=== PATIENT | female | born 1960 | race Caucasian/White ===

== ENCOUNTER 2020-05-25 11:06 | Emergency (ER) | payer BC ==
--- NOTE | 2020-05-25 11:22 | ERPHSYRPT ---
- History of Present Illness Time Seen by Provider: 05/25/20 11:21 Source: patient Exam Limitations: no limitations Physician History: This is a 59-year-old white female who was being treated for urinary tract infection. First with sulfa medication then Cipro antibiotic. The Cipro was started approximately 5 days ago. Patient began noticing left upper extremity tenderness approximately 1 week ago. A couple days ago she noticed bruising in the mid humeral region. There is tenderness in the bicep region with flexion and extension. Patient denies chest pain she denies shortness of breath. She has no flulike symptoms. Patient denies trauma to the area. Occurred: other (1 week ago) Method of Injury: other (No injury) Quality: aching Severity of Pain-Max: moderate Severity of Pain-Current: moderate Extremities Pain Location: arm: left (Mid humerus to distal humerus) Modifying Factors: Improves With: movement (Hurts in this area with flexion and extension of the left elbow) Associated Symptoms: none Allergies/Adverse Reactions: clindamycin Allergy (Verified 05/25/20 11:22) Home Medications: Ciprofloxacin HCl [Cipro] 500 mg PO DAILY 05/25/20 [History] Levothyroxine Sodium [Synthroid] 112 mcg PO DAILY 05/25/20 [History] Travel Risk - International Travel Have you traveled outside of the country in past 3 weeks: No - Coronavirus Screening Are you exhibiting any of the following symptoms?: No Close contact with a COVID-19 positive Pt in past 14-21 Days: No - Review of Systems Constitutional: No Symptoms Eyes: No Symptoms Ears, Nose, & Throat: No Symptoms Respiratory: No Symptoms Cardiac: No Symptoms Abdominal/Gastrointestinal: No Symptoms Genitourinary Symptoms: No Symptoms Musculoskeletal: Other (Pain in left humerus mid to distal portion), No Fall, No Injury Skin: No Symptoms Neurological: No Symptoms Psychological: No Symptoms Endocrine: No Symptoms Hematologic/Lymphatic: No Symptoms Immunological/Allergic: No Symptoms All Other Systems: Reviewed and Negative - Past Medical History Pertinent Past Medical History: No Neurological History: No Pertinent History ENT History: No Pertinent History Cardiac History: No Pertinent History Respiratory History: No Pertinent History Endocrine Medical History: No Pertinent History Musculoskeletal History: No Pertinent History GI Medical History: No Pertinent History History: No Pertinent History Psycho-Social History: No Pertinent History Female Reproductive Disorders: No Pertinent History - Past Surgical History Neuro Surgical History: No Pertinent History Respiratory: No Pertinent History Genitourinary: No Pertinent History Musculoskeletal: No Pertinent History Female Surgical History: No Pertinent History - Nursing Vital Signs Nursing Vital Signs: Initial Vital Signs Temperature 98 F 05/25/20 11:13 Pulse Rate 98 H 05/25/20 11:13 Respiratory Rate 17 05/25/20 11:13 Blood Pressure 165/94 05/25/20 11:13 O2 Sat by Pulse Oximetry 97 05/25/20 11:13 Pain Scale Pain Intensity 8 - Physical Exam General Appearance: no apparent distress, alert, anxiety Eyes, Ears, Nose, Throat Exam: normal ENT inspection, moist mucous membranes Neck Exam: normal inspection, non-tender, supple, full range of motion Cardiovascular/Respiratory Exam: chest non-tender, no respiratory distress Back Exam: normal inspection, normal range of motion, No CVA tenderness, No vertebral tenderness Shoulder Exam: normal inspection, non-tender, no evidence of injury, normal ROM Elbow/Forearm Exam: normal inspection, no evidence of injury, normal ROM, soft tissue tenderness (Mid to distal humerus in the region of the biceps muscle) Wrist Exam: normal inspection, non-tender, no evidence of injury, normal ROM Hand Exam: normal inspection, non-tender, no evidence of injury, normal ROM Neuro/Tendon Exam: normal sensation, normal motor functions, normal tendon functions Mental Status Exam: alert, oriented x 3, cooperative Skin Exam: normal color, warm, dry SpO2 Interpretation: normal O2 Delivery: Room Air - Course Nursing assessment & vital signs reviewed: Yes Ordered Tests: Active Orders 24 hr Category Date Time Status Cold Application STAT Care 05/25/20 11:22 Active UPPER EXTREMITY W/O CONTRAST [CT] Stat Exams 05/25/20 11:31 Completed D-DIMER QUANTITATIVE Stat Lab 05/25/20 11:37 Completed Lab/Rad Data: Laboratory Results 05/25/20 Range/Units 11:37 D-Dimer < 182 L (215-500) ng/mL - Progress Progress: pain not gone completely Progress Note: 05/25/20 12:36 CAT scan of the left humerus reveals no acute bony or muscular abnormality. There are some chronic changes noted. Counseled pt/family regarding: lab results, rad results - Departure Departure Disposition: Home Clinical Impression: Left upper limb pain, Coming in Condition: Stable Critical Care Time: No Referrals: PRABHJOT PRUITT [NON-STAFF PHY W/O PRIVILEGES] - Additional Instructions: Take medication as prescribed. Follow-up with your primary care provider for further management. Prescriptions: Carisoprodol 350 mg [Soma 350 mg] 350 mg PO Q8H PRN PRN #10 tablet PRN Reason: Muscle Spasms Prednisone 10 mg [Deltasone 10 mg] 10 mg PO TID #12 tablet
--- NOTE | 2020-05-25 12:27 | XRAY ---
Indication: Pain. No known injury. Multiple contiguous axial images obtained through the left humerus to include the shoulder and elbow joint. Two-dimensional sagittal and coronal reformatted images obtained. Comparison: None Humeral head demonstrates two 3 mm subcortical sclerotic lesions probably bone islands. Minimal acromioclavicular degenerative arthropathy. Calcifications seen of the distal supraspinatus tendon near its insertion most likely sequela from old injury/inflammation. No acute fracture, suspicious bony lesions, or osseous destructive process. Shoulder and elbow articulation appears anatomic. Visualized noncontrasted soft tissues including axilla and left lung unremarkable. Incidental splenic calcified granulomas. Impression: 1. Tiny humeral head bone islands, mild AC degenerative arthropathy, supraspinous tendon calcifications from old injury/inflammation, and splenic calcified granulomas. 2. Remaining CT left humerus without contrast exam is negative.
[2020-05-25 12:45] VITALS: BP 134/80; PULSE 80; O2SAT 100
== END 2020-05-25 12:53 | disposition home or self-care (01) ==
LOC: ED 11:06
DX: M79.602 Pain in left arm (principal)
CPT/HCPCS: 36415; 73200; 85379; 99284

== ENCOUNTER 2022-02-10 12:46 | Emergency (ER) | payer BC ==
[2022-02-10] MEDS ORDERED: Sodium Chloride 0.9% 1000 ML 1,000 ML IV STA ×2 (13:27→14:38)
[2022-02-10] MEDS ORDERED: Sodium Chloride 0.9% 1000 ML 1,000 ML ONE ×2 (13:31→14:39)
[2022-02-10 13:45] LABS: Absolute Neutrophil Ct (ANC) 6.25 (1.4-6.9); Basophil (Absolute #) 0.01 (0-0.4); Eosinophil % 0.2 % (0.00-5.0); Eosinophil (Absolute #) 0.02 (0-0.5); Hematocrit 43.5 % (35-47); Hemoglobin 14.6 gm/dl (12.0-16.0); Lymphocyte (Absolute #) 1.36 (1.0-4.6); Lymphocytes % 16.5 % (24.0-44.0); Mean Cell Volume 90.8 fl (78-100); Mean Corpuscular Hemoglobin 30.5 pg (26-32); Mean Corpuscular Hgb Concent. 33.6 g/dl (32-36); Mean Platelet Volume 11.2 fl (7.5-11.0); Monocytes % 7.3 % (0.0-12.0); Neutrophil % 75.9 % (36.0-66.0); Platelet Count 223 K/mm3 (150-450); Red Blood Count 4.79 M/mm3 (4.1-5.4); Red Cell Distribution Width 12.8 % (11.5-14.0); White Blood Count 8.2 K/mm3 (4.0-10.5)
[2022-02-10 13:56] LABS: ALBUMIN 4.5 g/dL (3.5-5.0); ALKALINE PHOSPHATASE 81 U/L (38-126); ANION GAP 14.9 MEQ/L (5-15); BLOOD UREA NITROGEN 16 mg/dL (7-17); CHLORIDE 106 mmol/L (98-107); Calcium 9.7 mg/dL (8.4-10.2); Carbon Dioxide 21 mmol/L (22-30); Creatinine 1 0.59 mg/dL (0.52-1.04); EST GLOMERULAR FILTRATION RATE > 60.0 ML/MIN; Glucose 109 mg/dL (74-106); MAGNESIUM 2.3 mg/dL (1.6-2.3); Potassium 3.9 mmol/L (3.5-5.1); SGOT/AST 32 U/L (14-36); SGPT/ALT 31 U/L (0-35); SODIUM 138 mmol/L (137-145); Total Protein 7.4 g/dL (6.3-8.2)
[2022-02-10 14:39] LABS: Epithelial Cells RARE /HPF (FEW); Mucus SLIGHT /HPF (NEGATIVE); RBC 0-2 /HPF (0-2); WBC 0-2 /HPF (0-5)
[2022-02-10 14:40] LABS: Appearance CLEAR (CLEAR); Bacteria NONE SEEN /HPF (NEGATIVE); Bilirubin NEGATIVE (NEGATIVE); Glucose NEGATIVE (NEGATIVE); Ketones SMALL-15 (NEGATIVE); Nitrite NEGATIVE (NEGATIVE); Protein,Urine Dip NEGATIVE (Negative); RBC TRACE-INTACT Ery/ul (0-5); Urine Cultured Indicated? NO; Urobilinogen 0.2 mg/dL (0-1)
[2022-02-10 15:28] VITALS: BP 144/74; PULSE 72; O2SAT 98
--- NOTE | 2022-02-10 15:50 | ERPHSYRPT ---
- History of Present Illness Time Seen by Provider: 02/10/22 13:24 Source: patient Exam Limitations: no limitations Patient Subjective Stated Complaint: Weakness-Covid + Triage Nursing Assessment: Patient ambulated back to ED and transferred self to bed. Patient A+O x3. Patient's skin pink, warm and dry. Patient states she was COVID + on 02/01/2022. Patient states she has weakness and nausea. Patient also complains of bodyaches and fatigue. Lungs clear a/p kristi. Physician History: 61 years old female unvaccinated for COVID-19, diagnosed with COVID-19 almost 10 days ago presented in the ER with generalized weakness fatigue tiredness, lack of energy to do her routine activities. She is also having off-and-on cough nonproductive without difficulty breathing. Because of repeated coughing having generalized chest soreness. No fever or chills reported. Denies any abdominal pain but does have some nausea without vomiting or diarrhea. Generalized body aches. Feels dehydrated. Timing/Duration: week(s) (2), gradual onset, worse Severity: moderate Modifying Factors: Worsens With: movement Associated Symptoms: nausea, cough, loss of appetite, malaise, weakness, No vomiting, No abdominal pain, No shortness of breath, No chest pain, No fever, No syncope, No seizure Allergies/Adverse Reactions: ciprofloxacin [From Cipro] Allergy (Verified 02/10/22 13:00) clindamycin Allergy (Verified 05/25/20 11:22) Home Medications: Levothyroxine Sodium [Synthroid] 112 mcg PO DAILY 05/25/20 [History] Hx Tetanus, Diphtheria Vaccination/Date Given: Yes Hx Influenza Vaccination/Date Given: No Hx Pneumococcal Vaccination/Date Given: No Immunizations Up to Date: Yes Travel Risk - International Travel Have you traveled outside of the country in past 3 weeks: No - Coronavirus Screening Are you exhibiting any of the following symptoms?: Yes Symptoms: Shortness of Breath, Vomiting/Diarrhea, Headaches/Body Aches/Fatigue Close contact with a COVID-19 positive Pt in past 14-21 Days: No - Vaccine Status Have you recieved a Covid-19 vaccination: No - Review of Systems Constitutional: Fatigue, Weakness Eyes: No Symptoms Ears, Nose, & Throat: No Symptoms Respiratory: Cough Cardiac: No Symptoms Abdominal/Gastrointestinal: Nausea Genitourinary Symptoms: No Symptoms Musculoskeletal: Myalgias Skin: No Symptoms Neurological: No Symptoms Psychological: No Symptoms Endocrine: No Symptoms Hematologic/Lymphatic: No Symptoms Immunological/Allergic: No Symptoms - Past Medical History Pertinent Past Medical History: No Neurological History: No Pertinent History ENT History: No Pertinent History Cardiac History: No Pertinent History Respiratory History: No Pertinent History Endocrine Medical History: No Pertinent History Musculoskeletal History: No Pertinent History GI Medical History: No Pertinent History History: No Pertinent History Psycho-Social History: No Pertinent History Female Reproductive Disorders: No Pertinent History - Past Surgical History Past Surgical History: Yes Neuro Surgical History: No Pertinent History Respiratory: No Pertinent History Gastrointestinal: Appendectomy Genitourinary: No Pertinent History Musculoskeletal: No Pertinent History Female Surgical History: No Pertinent History Other Surgical History: thyroidectomy - Social History Smoking Status: Never smoker Exposure to second hand smoke: No Drug Use: none Patient Lives Alone: No - Nursing Vital Signs Nursing Vital Signs: Initial Vital Signs Temperature 98.6 F 02/10/22 13:01 Pulse Rate 98 H 02/10/22 13:01 Respiratory Rate 18 02/10/22 13:01 Blood Pressure 137/80 02/10/22 13:01 O2 Sat by Pulse Oximetry 100 02/10/22 13:01 Pain Scale Pain Intensity 0 - Physical Exam General Appearance: no apparent distress, alert Eye Exam: PERRL/EOMI, eyes nml inspection Ears, Nose, Throat Exam: normal ENT inspection, TMs normal, pharynx normal, moist mucous membranes Neck Exam: normal inspection, non-tender, supple, full range of motion Respiratory Exam: normal breath sounds, lungs clear Cardiovascular Exam: regular rate/rhythm, normal heart sounds Gastrointestinal/Abdomen Exam: soft, normal bowel sounds, No tenderness Back Exam: normal inspection, normal range of motion Extremity Exam: normal inspection, normal range of motion, pelvis stable Neurologic Exam: alert, oriented x 3, cooperative, 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 Skin Exam: normal color SpO2 Interpretation: normal SpO2: 98 O2 Delivery: Room Air - Course EKG Interpreted by Me: RATE ([id number]), Sinus Tach, NORMAL AXIS, NORMAL INTERVALS, NORMAL QRS Ordered Tests: Active Orders 24 hr Category Date Time Status EKG-ER Only STAT Care 02/10/22 13:27 Completed IV Insertion STAT Care 02/10/22 13:27 Completed CHEST 1 VIEW (PORTABLE) Stat Exams 02/10/22 13:28 Taken CBC W DIFF Stat Lab 02/10/22 13:15 Completed CMP Stat Lab 02/10/22 13:15 Completed Lactic Acid Stat Lab 02/10/22 13:27 Ordered MAGNESIUM Stat Lab 02/10/22 13:15 Completed TROPONIN Q3H Lab 02/10/22 13:15 Completed UA W/RFX CULTURE Stat Lab 02/10/22 13:30 Completed Medication Summary Discontinued Medications Generic Name Dose Route Start Last Admin Trade Name Naty PRN Reason Stop Dose Admin Sodium Chloride 1,000 mls @ 999 mls/hr 02/10/22 13:27 02/10/22 14:34 Sodium Chloride 0.9% 1000 Ml IV 02/10/22 14:27 Infused .Q1H1M STA Infusion Sodium Chloride Confirm 02/10/22 13:31 Sodium Chloride 0.9% 1000 Ml Administered 02/10/22 13:32 Dose 1,000 mls @ ud .ROUTE .STK-MED ONE Sodium Chloride 1,000 mls @ 999 mls/hr 02/10/22 14:38 02/10/22 15:52 Sodium Chloride 0.9% 1000 Ml IV 02/10/22 15:38 Infused .Q1H1M STA Infusion Sodium Chloride Confirm 02/10/22 14:39 Sodium Chloride 0.9% 1000 Ml Administered 02/10/22 14:40 Dose 1,000 mls @ ud .ROUTE .STK-MED ONE Lab/Rad Data: Laboratory Result Diagrams 02/10/22 13:15 02/10/22 13:15 Laboratory Results 02/10/22 02/10/22 02/10/22 Range/Units 13:30 13:15 13:15 WBC (4.0-10.5) K/mm3 RBC (4.1-5.4) M/mm3 Hgb (12.0-16.0) gm/dl Hct (35-47) % MCV (78-100) fl MCH (26-32) pg MCHC (32-36) g/dl RDW (11.5-14.0) % Plt Count (150-450) K/mm3 MPV (7.5-11.0) fl Gran % (36.0-66.0) % Eos # (Auto) (0-0.5) Absolute Lymphs (auto) (1.0-4.6) Absolute Monos (auto) (0.0-1.3) Lymphocytes % (24.0-44.0) % Monocytes % (0.0-12.0) % Eosinophils % (0.00-5.0) % Basophils % (0.0-0.4) % Absolute Granulocytes (1.4-6.9) Basophils # (0-0.4) Sodium 138 (137-145) mmol/L Potassium 3.9 (3.5-5.1) mmol/L Chloride 106 (98-107) mmol/L Carbon Dioxide 21 L (22-30) mmol/L Anion Gap 14.9 (5-15) MEQ/L BUN 16 (7-17) mg/dL Creatinine 0.59 (0.52-1.04) mg/dL Estimated GFR > 60.0 ML/MIN Glucose 109 H (74-106) mg/dL Calcium 9.7 (8.4-10.2) mg/dL Magnesium 2.3 (1.6-2.3) mg/dL Total Bilirubin 0.70 (0.2-1.3) mg/dL AST 32 (14-36) U/L ALT 31 (0-35) U/L Alkaline Phosphatase 81 (38-126) U/L Troponin I < 0.012 (0.000-0.034) ng/mL Serum Total Protein 7.4 (6.3-8.2) g/dL Albumin 4.5 (3.5-5.0) g/dL Urinalys Dipstick Clnc MAIN LAB Urine Color YELLOW (YELLOW) Urine Appearance CLEAR (CLEAR) Urine pH 7.0 (5-6) Ur Specific [place] 1.020 (1.005-1.025) POC Urine Protein Conf NEGATIVE (Negative) Urine Ketones SMALL-15 (NEGATIVE) Urine Nitrite NEGATIVE (NEGATIVE) Urine Bilirubin NEGATIVE (NEGATIVE) Urine Urobilinogen 0.2 (0-1) mg/dL Urine Leukocytes NEGATIVE (NEGATIVE) Urine WBC (Auto) 0-2 (0-5) /HPF Urine RBC (Auto) 0-2 (0-2) /HPF U Epithel Cells (Auto) RARE (FEW) /HPF Urine Bacteria (Auto) NONE SEEN (NEGATIVE) /HPF Urine RBC TRACE-INTACT (0-5) Kevan/ul Urine Mucus (Auto) SLIGHT (NEGATIVE) /HPF Ur Culture Indicated? NO Urine Glucose NEGATIVE (NEGATIVE) mg/dL 02/10/22 Range/Units 13:15 WBC 8.2 (4.0-10.5) K/mm3 RBC 4.79 (4.1-5.4) M/mm3 Hgb 14.6 (12.0-16.0) gm/dl Hct 43.5 (35-47) % MCV 90.8 (78-100) fl MCH 30.5 (26-32) pg MCHC 33.6 (32-36) g/dl RDW 12.8 (11.5-14.0) % Plt Count 223 (150-450) K/mm3 MPV 11.2 H (7.5-11.0) fl Gran % 75.9 H (36.0-66.0) % Eos # (Auto) 0.02 (0-0.5) Absolute Lymphs (auto) 1.36 (1.0-4.6) Absolute Monos (auto) 0.60 (0.0-1.3) Lymphocytes % 16.5 L (24.0-44.0) % Monocytes % 7.3 (0.0-12.0) % Eosinophils % 0.2 (0.00-5.0) % Basophils % 0.1 (0.0-0.4) % Absolute Granulocytes 6.25 (1.4-6.9) Basophils # 0.01 (0-0.4) Sodium (137-145) mmol/L Potassium (3.5-5.1) mmol/L Chloride (98-107) mmol/L Carbon Dioxide (22-30) mmol/L Anion Gap (5-15) MEQ/L BUN (7-17) mg/dL Creatinine (0.52-1.04) mg/dL Estimated GFR ML/MIN Glucose (74-106) mg/dL Calcium (8.4-10.2) mg/dL Magnesium (1.6-2.3) mg/dL Total Bilirubin (0.2-1.3) mg/dL AST (14-36) U/L ALT (0-35) U/L Alkaline Phosphatase (38-126) U/L Troponin I (0.000-0.034) ng/mL Serum Total Protein (6.3-8.2) g/dL Albumin (3.5-5.0) g/dL Urinalys Dipstick Clnc Urine Color (YELLOW) Urine Appearance (CLEAR) Urine pH (5-6) Ur Specific [place] (1.005-1.025) POC Urine Protein Conf (Negative) Urine Ketones (NEGATIVE) Urine Nitrite (NEGATIVE) Urine Bilirubin (NEGATIVE) Urine Urobilinogen (0-1) mg/dL Urine Leukocytes (NEGATIVE) Urine WBC (Auto) (0-5) /HPF Urine RBC (Auto) (0-2) /HPF U Epithel Cells (Auto) (FEW) /HPF Urine Bacteria (Auto) (NEGATIVE) /HPF Urine RBC (0-5) Kevan/ul Urine Mucus (Auto) (NEGATIVE) /HPF Ur Culture Indicated? Urine Glucose (NEGATIVE) mg/dL - Progress Progress: improved Progress Note: 02/10/22 15:53 She is given fluid boluses, feeling much better on reevaluation. Lab work grossly unremarkable. Believe patient's symptoms are consistent with post COVID syndrome. Recommended supportive care and outpatient follow-up. Chest x-ray reviewed by me negative for any acute finding, official report is pending. Discussed signs symptoms of worsening needing return to ER which she seems unde rstanding. Stable for discharge. Counseled pt/family regarding: lab results, diagnosis, need for follow-up, rad results - Departure Departure Disposition: Home Clinical Impression: Post-COVID syndrome, Generalized weakness Condition: Stable Critical Care Time: No Referrals: ERICH HOOD MD [Primary Care Provider] - Follow up/PCP as directed (In 2 days for reevaluation) Instructions: Generalized Weakness (DC) Additional Instructions: Take Tylenol as needed, keep yourself well-hydrated. Take Zofran as needed for nausea. Follow-up with primary care for reevaluation. Return to ER if having difficulty breathing, chest pain, intractable nausea vomiting/fever chills etc. Prescriptions: Albuterol Sulfate [Albuterol Sulfate Hfa] 8.5 gm IH Q6H PRN 7 Days #1 inh PRN Reason: Cough Ondansetron ODT 4 MG [Zofran Odt 4 mg] 1 ea PO QIDPRN PRN #7 tablet PRN Reason: n/v
[2022-02-10 17:57] LABS: Dipstick done @ ? MAIN LAB
--- NOTE | 2022-02-10 20:35 | XRAY ---
Indication: Cough. Post Covid 19. Comparison: None Portable chest demonstrates minimal left base atelectasis/scarring. Remaining heart and lungs normal. Bony thorax intact. Surgical clips base of neck. Impression: Nonacute chest with chronic features.
== END 2022-02-10 16:19 | disposition home or self-care (01) ==
LOC: ED 12:46
DX: U09.9 Post COVID-19 condition, unspecified (principal); R53.1 Weakness; R53.83 Other fatigue; R05.9 Cough, unspecified; R11.0 Nausea; M79.10 Myalgia, unspecified site
CPT/HCPCS: 36000; 36415; 71045; 80053; 81015; 83735; 84484; 85025; 93005; 96360; 96361; 99284